=== PATIENT | female | born 1980 ===

== ENCOUNTER 2018-07-15 05:24 | Inpatient (IN) ==
--- OUTSIDE RECORDS SUMMARY | 2018-07-15 05:31 | External Medical Summary | Continuity of Care Document ---
:1980 Author Name Andres Simmons, Provider Address Unavailable Unavailable , Care Team Providers Name Role Phone Chase Simmons, [email or web address] Unavailable Unavailable Unavailable Unavailable Unavailable Problems resulting from in vitro fertil ization in third trimester (V23.85) (O09.813) Hypothyroid in , antepartum, third trimester (648.1 3) (O99.283) Screening, , for anatomic survey (V28.81) (Z3 6.89) Allergies and Adverse Reactions No Known Drug Allergies (Allergy) Medications Levothyroxine Sodium 50 MCG Oral Tablet Refills: 0 TABS Refills: 0 Procedures Non-stress test Date: 04-Jul-2018 Group B Strep/PEÑA Date: 10-Jul-2018 US, Ob, Growth w/w/o Doppler Date: 21-May-2018 US, Ob, Amniotic fluid index Date: 04-Jul-2018 US, Ob, Growth w/w/o Doppler Date: 20-Jun-2018 History of Oral Surgery Tooth Extraction Status: Completed Immunizations Tdap (Adacel) On: 21-May-2018 10:58 Lot #: [id number], SANOFI PASTEUR Family History Father Family history of hypertension (V17.49) (Z82.49) Status: Act lorenzo Mother Family history of thyroid disease (V18.19) (Z83.49) Status: Active Interventions Labs/Procedures/ImagingGroup B Strep/PEÑA; To Be Done: 18 Jul 2018 Plan of Treatment Planned Encounters Appointment; Ruthie Stone M.D. Start: 18-Jul-2018 15:10 Req uest Planned Observations Planned Goals not documented Results No Known Results Results not documented Vital Signs 04-Jul-2018 16:13 Systolic 106 mm[Hg] Diastolic 70 mm[Hg] Weight 156.6 lb Height 63 in BMI Calculated 27.74 kg/m2 BSA Calculated 1.74 m2 20-Jun-2018 15:31 Systolic 116 mm[Hg] Diastolic 74 mm[Hg] Weight 154.8 lb Height 63 in BMI Calculated 27.42 kg/m2 BSA Calculated 1.73 m2 Encounters Appointment; Amelia Allen DO 04-Jul-2018 16:10 Encounter Diagnosis: Problem not documented Appointment; Viet Nettles M.D. 20-Jun-2018 15:30 Encounter Diagnosis: Problem not documented Appointment; OBGYN SC2, Ultrasound 20-Jun-2018 15:00 Encounter Diagnosis: Problem not documented Appointment; Viet Nettles M.D. 05-Jun-2018 11:40 Encounter Diagnosis: Problem not documented Appointment; Evans Ramires M.D. 21-May-2018 11:20 Encounter Diagnosis: Problem not documented Appointment; OBGYEstelita JOSEPH1, Ultrasound 21-May-2018 10:30 Encounter Diagnosis: Problem not documented Appointment; Viet Nettles M.D. 18-Apr-2018 14:30 Encounter Diagnosis: Problem not documented Appointment; Viet Nettles M.D. 21-Mar-2018 14:20 Encounter Diagnosis: Problem not documented Appointment; OBGYEstelita JOSEPH1, Ultrasound 21-Mar-2018 13:30 Encounter Diagnosis: Problem not documented Appointment; Evans Ramires M.D. 14-Feb-2018 15:30 Encounter Diagnosis: Problem not documented Appointment; OB SC1, Procedure Rm 13-Jan-2018 8:20 Encounter Diagnosis: Problem not documented Appointment; Viet Nettles M.D. 13-Jan-2018 8:20 Encounter Diagnosis: Problem not documented Appointment; OB SC1, Nursing [facility] 06-Jan-2018 9:45 Encounter Diagnosis: Problem not documented Appointment; Ruthie Stone M.D. 18-Jul-2018 15:10 Encounter Diagnosis: Problem not documented
[2018-07-15] MEDS ORDERED: PENICILLIN G POTASSIUM 6 MU in DEXTROSE 5% 250 ML IV STA (06:22)
[2018-07-15] MEDS ORDERED: PENICILLIN G POTASSIUM 3 MU in DEXTROSE 5% 100 ML IV PRN (06:22)
[2018-07-15] MEDS ORDERED: LACTATED RINGER'S 1,000 ML IV PRN ×2 (06:22→07:02)
[2018-07-15] MEDS ORDERED: LACTATED RINGER'S 1,000 ML IV SCH (06:30)
--- NOTE | 2018-07-15 06:31 | History & Physical Report ---
Date of Service July 15, 2018 Assessment & Plan (1) 36 weeks gestation of : (2) PROM (premature rupture of membranes): admit, iv, labs. pcn for unknown gbs status, swab sent. desires epidural. History of Present Illness Chief Complaint: leaking and ctx since 230am today 07/15/18 Primary Care Provider: Jolie Kuhn MD 38yo at 36+wks ega presents to L&D with cc as noted above. Contractions started in early am as well. No vb. +FM. Pnc c/b 1. hypothyroid 2. IVF pegnancy --nl echo and growth u/s pnl rh pos, ri, gbs unknown obh: x 1, sab x 1 gynh: infertility, ivf via [place], no stds, no abnl paps pmh: migraines psh: wisdom teeth allg: nkda meds: pnv, levothyroxine Allergies Allergy/AdvReac Type Severity Reaction Status Date / Time No Known Allergies Allergy Unverified 07/15/18 06:04 Home Medications Home Medications Medication Instructions Recorded Confirmed Type levothyroxine 50 mcg PO DAILY 07/15/18 07/15/18 History vit-iron fum-folic ac 1 tab PO DAILY 07/15/18 07/15/18 History [ Vitamin] Patient History Medical History History of migraine Hypothyroid In vitro fertilization [place] teeth removed Social History Preferred Language: Indian Communication Ability: Effective 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 Beliefs That Will Affect Care: None marital status: Current Living Situation: Family Other Information That Helps Us Care for You: No Feels Safe at Home: Yes Smoking Status: Never smoker Hx Alcohol Use: No Hx Substance Use: No Review of Systems per hpi Physical Exam Constitutional: WD/WN, vitals as above Respiratory: normal respiratory effort, lungs clear to auscultation Cardiovascular: Rate/Rhythm: regular rate and regular rhythm Gastrointestinal (Abdomen): gravid nt Genitourinary: OB Exam Abdomen: + vertex (by exam) and + estimated weight (6-7#) Manual OB Exam: + cervical dilation 5 cm, + cervical effacement 90%, + station -1 and + amniotic fluid (+ large pool, large forebag, arom clear) clear, nitrazine positive and ferning present OB Exam Monitor Tracing: + external FHT monitor used (140 categ 1, reactive, mod variability) and + external uterine monitor used (q2) Results & Data Vital Signs (Past 12 Hours) Vital Signs Temp Pulse Resp BP 07/15/18 05:41 98.4 F 101 H 20 111/75
[2018-07-15 06:42] LABS: Hematocrit (blood only) 28.7 % (37-47); Mean Corpuscular Volume 71.2 fL (80-100); Nucleated RBC # (auto) 0.09 K/uL (0-0); Nucleated RBC % (auto) 0.6 %; Platelet Count 212 K/uL (130-400); RDW Coefficient of Variation 16.2 % (11.5-14.5); RDW Standard Deviation 42.5 fL (36.4-46.3); Red Blood Count 4.03 M/uL (4.2-5.4); White Blood Count 16.15 K/uL (4.8-10.8)
[2018-07-15] MEDS ORDERED: BUPIVACAINE 0.25% 30 ML VIAL ONE (06:50)
[2018-07-15 06:51] LABS: Mean Corpuscular Hgb Conc 31.4 g/dL (32-36)
[2018-07-15] MEDS ORDERED: ePHEDrine sulfate 50 MG/ML AMP ONE (06:51)
[2018-07-15] MEDS ORDERED: fentaNYL citrate 100 MCG/2 ML VIAL ONE (06:51)
[2018-07-15] MEDS ORDERED: fentaNYL 2MCG/ML ROPIV 1.25MG/ML 100 ML BAG EPI ONE (06:51)
--- NOTE | 2018-07-15 06:58 | Anesthesiology Consultation ---
Date of Service July 15, 2018 Assessment & Plan (1) Encounter for pre-operative examination: Chart Review Chart Review: Acceptable Risk for Surgery and Patient NOT seen in Pre Admission Testing Consults Requested none History Height/Weight Height: 5 ft 3 in Weight: 70.76 kg Allergies Allergy/AdvReac Type Severity Reaction Status Date / Time No Known Allergies Allergy Unverified 07/15/18 06:04 Medications Home Medications Medication Instructions Recorded Confirmed Last Taken levothyroxine 50 mcg PO DAILY 07/15/18 07/15/18 07/14/18 06:00 vit-iron fum-folic ac 1 tab PO DAILY 07/15/18 07/15/18 07/14/18 08:00 [ Vitamin] Active Medications Generic Name Dose Route Start Last Admin Trade Name Freq PRN Reason Stop Dose Admin Lactated Ringer's 1,000 mls @ 999 mls/hr 07/15/18 06:22 07/15/18 06:44 Lr IV 08/14/18 06:21 999 mls/hr .Q1H1M PRN Administration Pre-Anesthesia Penicillin G Potassium 6 mu/ 262 mls @ 262 mls/hr 07/15/18 06:22 07/15/18 06:56 Dextrose IV 07/15/18 07:21 262 mls/hr NOW STA Administration Past Medical History Medical History History of migraine Hypothyroid In vitro fertilization [place] teeth removed Social History Smoking Status: Never smoker Hx Alcohol Use: No Hx Substance Use: No substance use type: does not use Physical Exam Vital Signs Last Vital Signs Temp 36.9 C 07/15/18 05:41 Pulse 106 H 07/15/18 06:54 Resp 20 07/15/18 05:41 BP 111/75 07/15/18 05:41 Pulse Ox 98 07/15/18 06:54 Testing Laboratory Results 07/15/18 06:30
[2018-07-15] MEDS ORDERED: NALOXONE HCL 0.4 MG/1 ML VIAL/CARP IV PRN (07:02)
[2018-07-15] MEDS ORDERED: ePHEDrine sulfate 50 MG/ML AMP IV PRN (07:02)
[2018-07-15] MEDS ORDERED: NALOXONE HCL 1 MG in SODIUM CHLORIDE 0.9% 1000ML 1,000 ML IV PRN (07:02)
[2018-07-15] MEDS ORDERED: NALBUPHINE HCL INJ 10 MG/ML AMP IV PRN (07:02)
[2018-07-15] MEDS ORDERED: ONDANSETRON INJ 2 MG/ML 2 ML VIAL IV PRN (07:02)
[2018-07-15] MEDS ORDERED: fentaNYL 2MCG/ML ROPIV 1.25MG/ML 100 ML BAG EPI PRN (07:02)
[2018-07-15] MEDS ORDERED: DiphenhydrAMINE HCL 50 MG/ML VIAL IV PRN (07:02)
[2018-07-15] MEDS ORDERED: METHYLERGONOVINE MALEATE 0.2 MG/ML AMP ONE (07:49)
[2018-07-15] MEDS ORDERED: BUTORPHANOL TARTRATE 2 MG/ML VIAL ONE (07:52)
[2018-07-15] MEDS ORDERED: miSOPROStol 200 MCG TAB ONE (07:53)
[2018-07-15] MEDS ORDERED: TRANEXAMIC ACID 100 MG/ML 10 ML VIAL ONE (07:53)
[2018-07-15] MEDS ORDERED: CARBOPROST TROMETHAMINE 250 MCG/ML AMPUL ONE (07:58)
[2018-07-15] MEDS ORDERED: SODIUM CHLORIDE 0.9% 1000ML 1,000 ML IV SCH (08:00)
[2018-07-15] MEDS ORDERED: SODIUM CHLORIDE 0.9% 250 ML IV PRN ×3 (08:01→23:27)
[2018-07-15] MEDS: OXYTOCIN 30 UNITS/500 ML BAG IV PRN ×2 (08:21→10:00)
--- NOTE | 2018-07-15 08:27 | Delivery Summary ---
DATE OF OPERATION: 07/15/2018 The patient dilated to complete and pushed to deliver a viable male , Apgars 8 and 9 via over small second-degree perineal laceration. Mouth and nose bulb suctioned at the perineum. The shoulders and body delivered with ease. The infant was vigorous and crying at . Cord clamped at 30 seconds of life and infant to maternal abdomen. The cord was then doubly clamped and cut. Placenta delivered spontaneously intact, 3-vessel cord. Hemostasis inadequate with dilute Pitocin and uterine massage. Bimanual massage was performed. At first uterine tone seemed to be improving and therefore a periclitoral laceration that was notably bleeding was injected with 1% local lidocaine and reapproximated using 4-0 Vicryl. The perineal laceration to be repaired was also injected with local lidocaine; however, bleeding, increased. The para machine operator's hand was placed into the uterine cavity which was uncontracted and the uterus was swept with no remaining products of conception; however, poor uterine tone. For that reason, 800 mcg of rectal Cytotec was administered and the patient's blood pressure was evaluated. 0.2 mg IM Methergine was also administered. Bimanual massage continued. Uterine tone at times improved and then would not improve with gushes of further bleeding. The patient was ultimately typed and crossed for 2 units and they were held. Since the uterine cavity was able to admit the entire hand, the Bakri balloon was readied and placed. It was filled with 240 mL of sterile saline. The bleeding seemingly was improving. The fundal height remained at 1 above the umbilicus. The cervix and sulci had been expected as well and no bleeding sites were noted. The 3-0 Vicryl was used to repair a small second-degree perineal laceration. Once again, the bleeding was closely evaluated and was improved. A stat H and H had been ordered, but was not back yet. The mother and baby were stable in recovery. All of the events of the hemorrhage were reviewed with the patient and the spouse. The EBL was 700 mL. I attest to the content of the Intraoperative Record and any orders documented therein. Any exceptions are noted below. MTDD
[2018-07-15 08:29] LABS: Hematocrit (blood only) 24.6 % (37-47); Hemoglobin 7.9 g/dL (12.0-16.0)
[2018-07-15] MEDS: CEFAZOLIN 2000MG 2,000 MG/15 ML SYR IV SCH ×2 (12:15→20:19)
[2018-07-15] MEDS ORDERED: OXYTOCIN 30 UNITS/500 ML BAG IV PRN ×3 (13:53→19:45)
[2018-07-15 17:07] LABS: Hematocrit (blood only) 23.4 % (37-47); Hemoglobin 7.6 g/dL (12.0-16.0); Mean Corpuscular Volume 71.1 fL (80-100); Mean Platelet Volume 9.7 fL (7.4-10.4); Nucleated RBC # (auto) 0.07 K/uL (0-0); Nucleated RBC % (auto) 0.4 %; Platelet Count 164 K/uL (130-400); RDW Coefficient of Variation 16.4 % (11.5-14.5); RDW Standard Deviation 42.7 fL (36.4-46.3); Red Blood Count 3.29 M/uL (4.2-5.4); White Blood Count 20.06 K/uL (4.8-10.8)
[2018-07-15] MEDS ORDERED: Nursing to Pharmacy Communication ONE (17:26)
[2018-07-15 17:27] LABS: Albumin Level 1.7 gm/dl (3.4-5.0); BUN Creatinine Ratio 8.2 (10-20); Creatinine Clr Calc Pharmacy 75.6 ml/min; Est GFR (African American) 87.1; Est GFR (Non-African American) 75.1; Potassium 4.5 mmol/L (3.5-5.1)
[2018-07-15 17:30] LABS: Albumin Globulin Ratio 0.5 (0.9-2); Basophils # (auto) 0.01 K/uL (0-0.2); Bilirubin,Total 0.4 mg/dl (0.2-1); Eosinophils # (auto) 0.01 K/uL (0-0.5); Globulin 3.3 gm/dl (2.5-4.0); Immature Granulocytes # (auto) 0.09 K/uL (0.00-0.02); Immature Granulocytes % (auto) 0.4 %; Lymphocytes % (auto) 7.5 %; Mean Corpuscular Hgb Conc 32.5 g/dL (32-36); Microcytosis Present; Monocytes # (auto) 1.53 K/uL (0.11-0.59); Monocytes % (auto) 7.6 %; Neutrophils # (auto) 16.92 K/uL (1.4-6.5); Neutrophils % (auto) 84.5 %; Polychromasia 1+
[2018-07-15] MEDS ORDERED: OXYTOCIN 20 UNITS in LACTATED RINGER'S 1,000 ML IV SCH (19:45)
[2018-07-15] MEDS ORDERED: OXYCODONE/ACETAMINOPHEN 5mg/325mg TAB PO PRN (19:45)
[2018-07-15] MEDS ORDERED: BENZOCAINE 20% AER SPR 82.5 GM CAN EXT PRN (19:45)
[2018-07-15] MEDS ORDERED: ACETAMINOPHEN 325 MG TAB PO PRN (19:45)
[2018-07-15] MEDS ORDERED: miSOPROStol 200 MCG TAB PR ONE (19:45)
[2018-07-15] MEDS ORDERED: DIPHTHERIA/TETANUS/PERTUSSIS 0.5 ML SYR/VIAL IM ONE (19:45)
[2018-07-15] MEDS ORDERED: HYDROCORTISONE ACETATE 25 MG SUPP PR PRN (19:45)
[2018-07-15] MEDS ORDERED: SUPERCREAM 0.870% 15 GM JAR EXT PRN (19:45)
[2018-07-15] MEDS ORDERED: METHYLERGONOVINE MALEATE 0.2 MG/ML AMP IM ONE (19:45)
[2018-07-15] MEDS ORDERED: CEFAZOLIN 2000MG 2,000 MG/15 ML SYR IV SCH (19:45)
[2018-07-15] MEDS: IBUPROFEN 600 MG TAB PO PRN (20:01)
[2018-07-15] MEDS: DOCUSATE SODIUM 100 MG CAP PO SCH (20:25)
--- NOTE | 2018-07-15 21:01 | Anesthesia Procedure Note ---
Date of Service July 15, 2018 Anesthesia Post Epidural Note Vital Signs Vital Signs: Temp Pulse Resp BP Pulse Ox 36.6 C 90 18 108/75 96 07/15/18 20:41 07/15/18 20:55 07/15/18 20:41 07/15/18 20:55 07/15/18 12:44 Notes Mental Status: alert / awake / arousable Patient Amnestic to Procedure: No Nausea / Vomiting: adequately controlled Pain: adequately controlled Airway Patency, RR, SpO2: stable & adequate BP & HR: stable & adequate Hydration State: stable & adequate Neuraxial Anesthesia: see Notes below Anesthetic Complications: no major complications apparent Notes: The patient received intrathecal fentanyl for her delivery due to not enough time to place an epidural.
[2018-07-16] MEDS: CEFAZOLIN 2000MG 2,000 MG/15 ML SYR IV SCH (03:32)
[2018-07-16 06:08] LABS: Hematocrit (blood only) 21.9 % (37-47); Mean Corpuscular Volume 71.3 fL (80-100); Mean Platelet Volume 10.5 fL (7.4-10.4); Nucleated RBC # (auto) 0.06 K/uL (0-0); Nucleated RBC % (auto) 0.4 %; Platelet Count 155 K/uL (130-400); RDW Coefficient of Variation 16.4 % (11.5-14.5); Red Blood Count 3.07 M/uL (4.2-5.4); White Blood Count 15.39 K/uL (4.8-10.8)
[2018-07-16] MEDS: LEVOTHYROXINE SODIUM 50 MCG TABLET PO SCH (06:17)
[2018-07-16 06:43] LABS: Albumin Level 1.6 gm/dl (3.4-5.0); BUN Creatinine Ratio 9.4 (10-20); Calcium 7.6 mg/dl (8.5-10.1); Creatinine Clr Calc Pharmacy 80.6 ml/min; Est GFR (African American) 94.1; Est GFR (Non-African American) 81.2
[2018-07-16 06:46] LABS: Albumin Globulin Ratio 0.5 (0.9-2); Bilirubin,Total 0.4 mg/dl (0.2-1); Globulin 3.1 gm/dl (2.5-4.0); Total Protein 4.7 gm/dl (6.4-8.2)
--- NOTE | 2018-07-16 08:02 | Obstetrical Progress Note ---
Date of Service <Jennyfer Olmstead MD - Last Filed: 07/16/18 08:27> July 16, 2018 Assessment & Plan <Jennyfer Olmstead MD - Last Filed: 07/16/18 08:27> (1) care following vaginal delivery: 38yo with at 36+ weeks. Episode of hemorrhage following delivery with bakri placement. Bakri has since been removed. On 24hr Ancef. PPD #1 -Pt doing well, asymptomatic in terms of no dizziness or pre/syncopal episodes lacy when up and about. -H/H noted and reviewed-currrently 7.0/21.9 from 9.0/28.7 on admission. -Voiding ok, multiple episodes withOUT [place], mild dysuria -BP soft currently- 98/67 -Routine care -Ambulation encouraged -Pain control Subjective <Jennyfer Olmstead MD - Last Filed: 07/16/18 08:27> Ambulation: ambulating normally Voiding: no voiding problems Passing Gas:: Yes Diet Tolerance:: regular diet Lochia:: Moderate Feeding Type:: breast feeding Current Pain Level(1-10): 2 Constitutional: no fever and no chills Respiratory: no dyspnea Cardiovascular: + edema (new onset); no chest pain, no palpitations, no lightheadedness and no calf pain Gastrointestinal: no nausea and no vomiting Genitourinary (female): no dysuria Neurologic: no headache(s) Physical Exam <Jennyfer Olmstead MD - Last Filed: 07/16/18 08:27> Vital Signs (Past 24 Hours) Last Vital Signs Temp 36.4 C L 07/16/18 03:15 Pulse 59 L 07/16/18 03:15 Resp 18 07/16/18 03:15 BP 98/67 L 07/16/18 03:15 Pulse Ox 96 07/15/18 12:44 Respiratory normal respiratory effort, lungs clear to auscultation Cardiovascular Rate/Rhythm: regular rate and regular rhythm Extremities: + pedal edema; no calf tenderness Genitourinary OB Exam Abdomen: + fundal height Fundus: + firm and + relation to umbilicus (on left side at umbilicus) Results & Data <Jennyfer Olmstead MD - Last Filed: 07/16/18 08:27> Laboratory Results Laboratory Results - last 24 hr 07/15/18 07/15/18 07/15/18 06:30 08:17 08:17 WBC RBC Hgb 7.9 L Hct 24.6 L MCV MCH MCHC RDW Std Deviation RDW Coeff of Katina Plt Count MPV Immature Gran % (Auto) Neut % (Auto) Lymph % (Auto) [place] % (Auto) Eos % (Auto) Baso % (Auto) Immature Gran # (Auto) Neut # (Auto) Lymph # (Auto) [place] # (Auto) Eos # (Auto) Baso # (Auto) Absolute Nucleated RBC Nucleated RBC % (auto) Polychromasia Microcytosis Sodium Potassium Chloride Carbon Dioxide Anion Gap BUN Creatinine Est Cr Clr Drug Dosing Est GFR ( Amer) Est GFR (Non-Af Amer) BUN/Creatinine Ratio Glucose Calcium Total Bilirubin AST ALT Alkaline Phosphatase Total Protein Albumin Globulin Albumin/Globulin Ratio Blood Type O Positive Blood Type Recheck O Positive Antibody Screen NEGATIVE Crossmatch See Detail 07/15/18 07/15/18 07/16/18 16:55 16:55 05:50 WBC 20.06 H RBC 3.29 L Hgb 7.6 L Hct 23.4 L MCV 71.1 L MCH 23.1 L MCHC 32.5 RDW Std Deviation 42.7 RDW Coeff of Katina 16.4 H Plt Count 164 MPV 9.7 Immature Gran % (Auto) 0.4 Neut % (Auto) 84.5 Lymph % (Auto) 7.5 [place] % (Auto) 7.6 Eos % (Auto) 0.0 Baso % (Auto) 0.0 Immature Gran # (Auto) 0.09 H Neut # (Auto) 16.92 H Lymph # (Auto) 1.50 [place] # (Auto) 1.53 H Eos # (Auto) 0.01 Baso # (Auto) 0.01 Absolute Nucleated RBC 0.07 H Nucleated RBC % (auto) 0.4 Polychromasia 1+ Microcytosis Present Sodium 137 138 Potassium 4.5 4.0 Chloride 110 H 111 H Carbon Dioxide 21 22 Anion Gap 6.0 5.0 BUN 8 9 Creatinine 0.97 0.91 Est Cr Clr Drug Dosing 75.6 80.6 Est GFR ( Amer) 87.1 94.1 Est GFR (Non-Af Amer) 75.1 81.2 BUN/Creatinine Ratio 8.2 L 9.4 L Glucose 83 75 Calcium 8.0 L 7.6 L Total Bilirubin 0.4 0.4 AST 51 H 46 H ALT 22 17 Alkaline Phosphatase 263 H 229 H Total Protein 5.0 L 4.7 L Albumin 1.7 L 1.6 L Globulin 3.3 3.1 Albumin/Globulin Ratio 0.5 L 0.5 L Blood Type Blood Type Recheck Antibody Screen Crossmatch 07/16/18 05:50 WBC 15.39 H RBC 3.07 L Hgb 7.0 L Hct 21.9 L MCV 71.3 L MCH 22.8 L MCHC 32.0 RDW Std Deviation 43.0 RDW Coeff of Katina 16.4 H Plt Count 155 MPV 10.5 H Immature Gran % (Auto) Neut % (Auto) Lymph % (Auto) [place] % (Auto) Eos % (Auto) Baso % (Auto) Immature Gran # (Auto) Neut # (Auto) Lymph # (Auto) [place] # (Auto) Eos # (Auto) Baso # (Auto) Absolute Nucleated RBC 0.06 H Nucleated RBC % (auto) 0.4 Polychromasia Microcytosis Sodium Potassium Chloride Carbon Dioxide Anion Gap BUN Creatinine Est Cr Clr Drug Dosing Est GFR ( Amer) Est GFR (Non-Af Amer) BUN/Creatinine Ratio Glucose Calcium Total Bilirubin AST ALT Alkaline Phosphatase Total Protein Albumin Globulin Albumin/Globulin Ratio Blood Type Blood Type Recheck Antibody Screen Crossmatch Medications Administered Home Medications levothyroxine 50 mcg PO DAILY 07/15/18 [History Confirmed 07/15/18] vit-iron fum-folic ac [ Vitamin] 1 tab PO DAILY 07/15/18 [History Confirmed 07/15/18] Active Medications Acetaminophen (Tylenol) 650 mg PO Q6H PRN PRN Reason: Pain/YADAV/Fever Stop: 08/14/18 19:44 Benzocaine (Dermoplast Pain Relieving [place]) 1 appln EXT PRN PRN PRN Reason: Perineal Discomfort Stop: 08/14/18 19:44 Last Admin: 07/15/18 20:01 Dose: 1 appln Documented by: Cocaine HCl (Supercream 0.870%) 1 gm EXT BID PRN PRN Reason: Hemorrhoidal Inflammation Stop: 07/29/18 19:44 Docusate Sodium (Colace) 100 mg PO BID [facility] Stop: 08/14/18 19:44 Last Admin: 07/15/18 20:25 Dose: 100 mg Documented by: Hydrocortisone (Anusol Hc) 25 mg [place] BID PRN PRN Reason: Hemorrhoidal Inflammation Stop: 08/14/18 19:44 Cefazolin Sodium (Ancef 2000mg) 2,000 mg in 15 mls @ 3.75 mls/min IV Q8H [facility] Stop: 07/16/18 11:59 Last Admin: 07/16/18 03:32 Dose: 3.75 mls/min Documented by: Sodium Chloride (Nss) 250 mls @ 15 mls/hr IV .[id number] PRN PRN Reason: For Transfusion Stop: 08/14/18 18:46 Oxytocin 20 units/ Lactated (Ringer's) 1,002 mls @ 125 mls/hr IV .Q8H1M [facility] Stop: 08/14/18 19:44 Sodium Chloride (Nss) 250 mls @ 15 mls/hr IV .[id number] PRN PRN Reason: For Transfusion Stop: 08/14/18 23:26 Ibuprofen (Motrin) 600 mg PO Q4H PRN PRN Reason: Pain/YADAV/Cramping/Fever Stop: 08/14/18 19:44 Last Admin: 07/15/18 20:01 Dose: 600 mg Documented by: Levothyroxine Sodium (Synthroid) 50 mcg PO DAILYBB [facility] Stop: 08/15/18 06:29 Last Admin: 07/16/18 06:17 Dose: 50 mcg Documented by: Oxycodone/Acetaminophen (Percocet 5mg/325mg) 1 tab PO Q4H PRN PRN Reason: Pain not relieved by... Stop: 07/29/18 19:44 Prenat Multivit/[place]/Iron/Folic Ac ( Vitamin) 1 tab PO [facility] Stop: 08/14/18 19:44 <Evans Ramires MD - Last Filed: 07/16/18 08:38> Co-Signing Physician Notes Patient seen and agree with findings and plan
[2018-07-16] MEDS: DOCUSATE SODIUM 100 MG CAP PO SCH ×2 (08:55→20:16)
[2018-07-16] MEDS: PRENATAL VITAMIN 1 TAB PO SCH (08:55)
[2018-07-16] MEDS: FERROUS SULFATE 325 MG TAB PO SCH ×2 (12:38→17:44)
[2018-07-17] MEDS: LEVOTHYROXINE SODIUM 50 MCG TABLET PO SCH (07:06)
--- NOTE | 2018-07-17 08:10 | Obstetrical Progress Note ---
Date of Service <Jennyfer Olmstead MD - Last Filed: 07/17/18 08:14> July 17, 2018 Assessment & Plan <Jennyfer Olmstead MD - Last Filed: 07/17/18 08:14> (1) care following vaginal delivery: 38yo with at 36+ weeks. Episode of hemorrhage following delivery with bakri placement. Bakri has since been removed. 24hr Ancef completed. PPD #2 -Pt doing well. -Still asymptomatic in terms of no dizziness or pre/syncopal episodes lacy when up and about. -Multiple voiding episodes with adequate urine output. -Discharge today; instructions reviewed. Subjective <Jennyfer Olmstead MD - Last Filed: 07/17/18 08:14> Ambulation: ambulating normally Voiding: no voiding problems (issues completely resolved) Passing Gas:: Yes Diet Tolerance:: regular diet Lochia:: Moderate Feeding Type:: breast feeding Current Pain Level(1-10): 0 Eyes: no problem reported (no blurry vision) Respiratory: no dyspnea Cardiovascular: + edema; no chest pain, no palpitations, no lightheadedness and no calf pain Gastrointestinal: no nausea and no vomiting Genitourinary (female): + dysuria (mild) Neurologic: no headache(s) Physical Exam <Jennyfer Olmstead MD - Last Filed: 07/17/18 08:14> Vital Signs (Past 24 Hours) Last Vital Signs Temp 36.4 C L 07/16/18 23:05 Pulse 76 07/16/18 23:05 Resp 16 07/16/18 23:05 BP 104/65 07/16/18 23:05 Pulse Ox 100 07/16/18 23:05 Respiratory normal respiratory effort, lungs clear to auscultation Cardiovascular Rate/Rhythm: regular rate and regular rhythm Extremities: + edema (still present but much improved); no calf tenderness Genitourinary OB Exam Abdomen: + fundal height Fundus: + firm and + relation to umbilicus (1 above) Results & Data <Jennyfer Olmstead MD - Last Filed: 07/17/18 08:14> Medications Administered Home Medications levothyroxine 50 mcg PO DAILY 07/15/18 [History Confirmed 07/15/18] vit-iron fum-folic ac [ Vitamin] 1 tab PO DAILY 07/15/18 [History Confirmed 07/15/18] Active Medications Acetaminophen (Tylenol) 650 mg PO Q6H PRN PRN Reason: Pain/YADAV/Fever Stop: 08/14/18 19:44 Benzocaine (Dermoplast Pain Relieving [place]) 1 appln EXT PRN PRN PRN Reason: Perineal Discomfort Stop: 08/14/18 19:44 Last Admin: 07/15/18 20:01 Dose: 1 appln Documented by: Cocaine HCl (Supercream 0.870%) 1 gm EXT BID PRN PRN Reason: Hemorrhoidal Inflammation Stop: 07/29/18 19:44 Docusate Sodium (Colace) 100 mg PO BID [facility] Stop: 08/14/18 19:44 Last Admin: 07/16/18 20:16 Dose: 100 mg Documented by: Ferrous Sulfate (Feosol) 325 mg PO BIDM [facility] Stop: 08/15/18 16:59 Last Admin: 07/16/18 17:44 Dose: 325 mg Documented by: Hydrocortisone (Anusol Hc) 25 mg [place] BID PRN PRN Reason: Hemorrhoidal Inflammation Stop: 08/14/18 19:44 Sodium Chloride (Nss) 250 mls @ 15 mls/hr IV .[id number] PRN PRN Reason: For Transfusion Stop: 08/14/18 18:46 Oxytocin 20 units/ Lactated (Ringer's) 1,002 mls @ 125 mls/hr IV .Q8H1M [facility] Stop: 08/14/18 19:44 Sodium Chloride (Nss) 250 mls @ 15 mls/hr IV .[id number] PRN PRN Reason: For Transfusion Stop: 08/14/18 23:26 Ibuprofen (Motrin) 600 mg PO Q4H PRN PRN Reason: Pain/YADAV/Cramping/Fever Stop: 08/14/18 19:44 Last Admin: 07/15/18 20:01 Dose: 600 mg Documented by: Levothyroxine Sodium (Synthroid) 50 mcg PO DAILYBB [facility] Stop: 08/15/18 06:29 Last Admin: 07/17/18 07:06 Dose: 50 mcg Documented by: Oxycodone/Acetaminophen (Percocet 5mg/325mg) 1 tab PO Q4H PRN PRN Reason: Pain not relieved by... Stop: 07/29/18 19:44 Prenat Multivit/[place]/Iron/Folic Ac ( Vitamin) 1 tab PO QAM [place] Stop: 08/14/18 19:44 Last Admin: 07/16/18 08:55 Dose: 1 tab Documented by: <Tere Lozano MD, FACOG - Last Filed: 07/17/18 08:16> Co-Signing Physician Notes Resident Physician Supervision Note: I interviewed and examined the patient. Discussed with Dr. Olmstead and agree with findings and plan as documented in the note. Any exceptions or clarifications are listed here: Doing well. Plan d/c. Instructions given. Documented By: Tere Lozano MD, FACOG
[2018-07-17 08:20] LABS: Hematocrit (blood only) 24.5 % (37-47); Hemoglobin 7.7 g/dL (12.0-16.0)
[2018-07-17] MEDS: DOCUSATE SODIUM 100 MG CAP PO SCH ×2 (08:36→20:06)
[2018-07-17] MEDS: FERROUS SULFATE 325 MG TAB PO SCH ×2 (08:36→20:07)
[2018-07-17] MEDS: PRENATAL VITAMIN 1 TAB PO SCH (08:36)
[2018-07-17] MEDS: IBUPROFEN 600 MG TAB PO PRN (15:36)
== END 2018-07-17 22:08 | disposition home or self-care (01) | DRG 807 ==
LOC: OPB 05:24 → 4S1 05:29 → 4S2 22:45